=== PATIENT | female | born 1990 | race Caucasian/White ===

== ENCOUNTER 2016-09-04 08:45 | Emergency (ER) | payer MEDICAID, OTHER ==
[2016-09-04 09:19] VITALS: BP 104/62; PULSE 79; RESP 16; TEMP 98.4; O2SAT 96; BMI 24.3
--- NOTE | 2016-09-04 09:24 | ED PDOC ---
Arrival/HPI - General Chief Complaint: ENT Problem Time Seen by Provider: 09/04/16 09:12 Historian: Patient - History of Present Illness Time/Duration: Other (1 day) Symptom Onset: Gradual Symptom Course: Unchanged Activities at Onset: Rest Associated Symptoms (Text): 09/04/16 09:22 Patient complains since yesterday of sore throat with just not feeling well. No cough congestion or URI. No vomiting or diarrhea. No fever or chills. She does not appear ill. Past Medical History - Infectious Disease Hx of Infectious Diseases: None - Tetanus Immunization Tetanus Immunization: Unknown - Cardiac Hx Cardiac Disorders: No - Pulmonary Hx Respiratory Disorders: Yes Hx Asthma: Yes - Neurological Hx Neurological Disorder: No - HEENT Hx HEENT Disorder: No - Renal Hx Renal Disorder: No - Endocrine/Metabolic Hx Endocrine Disorders: No - Hematological/Oncological Hx Blood Disorders: No - Integumentary Hx Dermatological Disorder: No - Musculoskeletal/Rheumatological Hx Musculoskeletal Disorders: No - Gastrointestinal Hx Gastrointestinal Disorders: No - Genitourinary/Gynecological Hx Genitourinary Disorders: Yes Other/Comment: ovarian cyst - Psychiatric Hx Psychophysiologic Disorder: No Hx Substance Use: No - Surgical History Hx Eye Surgery: Yes Other/Comment: - Anesthesia Hx Anesthesia: Yes Hx Anesthesia Reactions: No Hx Malignant Hyperthermia: No - Suicidal Assessment Feels Threatened In Home Enviroment: No Family/Social History - Physician Review Nursing Documentation Reviewed: Yes Family/Social History: Unknown Family HX Smoking Status: Never Smoked Hx Alcohol Use: No Hx Substance Use: No Hx Substance Use Treatment: No Allergies/Home Meds Allergies/Adverse Reactions: Allergies No Known Allergies Allergy (Verified 03/29/15 16:34) Review of Systems - Physician Review All systems were reviewed & negative as marked: Yes - Review of Systems Constitutional: Fatigue. absent: Fevers ENT: Sore Throat. absent: Rhinorrhea, Sinus Congestion Respiratory: absent: Cough Physical Exam Vital Signs Temp Pulse Resp BP Pulse Ox 09/04/16 09:17 98.4 F 79 16 104/62 96 Temperature: Afebrile Blood Pressure: Normal Pulse: Regular Respiratory Rate: Normal Appearance: Positive for: Well-Appearing, Non-Toxic, Comfortable Pain Distress: None Mental Status: Positive for: Alert and Oriented X 3 - Systems Exam Head: Present: Atraumatic, Normocephalic Pupils: Present: PERRL Extroacular Muscles: Present: EOMI Conjunctiva: Present: Normal Ears: Present: NORMAL TM, Normal Canal. No: Erythema, TM Bulging Mouth: Present: Moist Mucous Membranes Pharnyx: Present: ERYTHEMA. No: EXUDATE, TONSILS ENLARGED, Peritonsilar Swelling, Uvular Deviation, Muffled/Hoarse Voice, Strider, Soft Palate/Uvular Edema Neck: Present: Normal Range of Motion Respiratory/Chest: Present: Clear to Auscultation, Good Air Exchange. No: Respiratory Distress, Accessory Muscle Use Cardiovascular: Present: Regular Rate and Rhythm, Normal S1, S2. No: Murmurs Skin: Present: Warm, Dry, Normal Color. No: Rashes Disposition/Present on Arrival - Present on Arrival Any Indicators Present on Arrival: No History of DVT/PE: No History of Uncontrolled Diabetes: No Urinary Catheter: No History of Decub. Ulcer: No History Surgical Site Infection Following: None - Disposition Have Diagnosis and Disposition been Completed?: Yes Diagnosis: Pharyngitis Disposition: HOME/ ROUTINE Disposition Time: 09:23 Patient Plan: Discharge Condition: GOOD Discharge Instructions (ExitCare): Pharyngitis (ED) Additional Instructions: Symptomatic treatment. Tylenol as directed on bottle as needed. Cepacol or Cepastat as directed on bottle as needed. Follow-up with PMD. Follow-up in the ER as needed. Prescriptions: Amoxicillin [Amoxil 250 mg Cap] 250 mg PO TID #21 cap Referrals: PCP,NO [Primary Care Provider] - Follow up with primary
== END 2016-09-04 09:47 | disposition home or self-care (01) ==
LOC: ED 08:45
DX: J02.9 Acute pharyngitis, unspecified (principal)

== ENCOUNTER 2017-03-26 09:13 | Emergency (ER) | payer MEDICAID ==
[2017-03-26 09:16] VITALS: BMI 22.4
[2017-03-26] MEDS ORDERED: Levalbuterol 1.25 MG/3 ML Inhal Soln UD IH STA (09:21)
--- NOTE | 2017-03-26 09:36 | ED PDOC ---
Arrival/HPI <Ron Mathews - Last Filed: 03/26/17 10:38> <[place] - Last Filed: 03/26/17 18:34> - General Chief Complaint: Shortness Of Breath Time Seen by Provider: 03/26/17 09:19 - History of Present Illness Narrative History of Present Illness (Text): CC: SOB x2d Patient is a 26 yo F w/ Hx of asthma who has never been intubated coming to the hospital for 2d history of SOB; states she ran out of her inhalers and SOB is getting worse. Walked into ER, able to speak in full sentences, not in any apparent respiratory distress. States mom used to be respiratory therapist and would give her treatments at home when the weather got worse, but patients mother last month and the patient has not had the same access to treatments. Is only on albuterol rescue inhaler and nebulizer tx PRN; no long acting inhalers. Patient has never been hospitalized for asthma, never been intubated in the past. Patient states she has been feeling under the weather with a cough for the past few days; non productive with diffuse body aches and shortness of breath. did not receive her flu shot. admits to fevers/chills, SOb at home, has taken fever reducers prior to coming into hospital. Denies CP, abdominal pain, N/V/D, dysuria/freq/urg, or lower extremity pain/swelling. (Ron Mathews) Past Medical History - Provider Review Nursing Documentation Reviewed: Yes - Travel History Have you recently traveled outside [place] w/in the past 3 mons?: No - Infectious Disease Hx of Infectious Diseases: None - Tetanus Immunization Tetanus Immunization: Unknown - Cardiac Hx Cardiac Disorders: No - Pulmonary Hx Respiratory Disorders: Yes Hx Asthma: Yes - Neurological Hx Neurological Disorder: No - HEENT Hx HEENT Disorder: No - Renal Hx Renal Disorder: No - Endocrine/Metabolic Hx Endocrine Disorders: No - Hematological/Oncological Hx Blood Disorders: No - Integumentary Hx Dermatological Disorder: No - Musculoskeletal/Rheumatological Hx Musculoskeletal Disorders: No - Gastrointestinal Hx Gastrointestinal Disorders: No - Genitourinary/Gynecological Hx Genitourinary Disorders: Yes Other/Comment: ovarian cyst - Psychiatric Hx Psychophysiologic Disorder: No Hx Substance Use: Yes - Surgical History Hx Eye Surgery: Yes Other/Comment: - Anesthesia Hx Anesthesia: Yes Hx Anesthesia Reactions: No Hx Malignant Hyperthermia: No - Suicidal Assessment Feels Threatened In Home Enviroment: No <Ron Mathews - Last Filed: 03/26/17 10:38> Family/Social History - Physician Review Nursing Documentation Reviewed: Yes Family/Social History: No Known Family HX Smoking Status: Never Smoked Hx Alcohol Use: No Hx Substance Use: Yes Substance used: marijuana Hx Substance Use Treatment: No <Ron Mathews - Last Filed: 03/26/17 10:38> Allergies/Home Meds <Ron Mathews - Last Filed: 03/26/17 10:38> <[place] - Last Filed: 03/26/17 18:34> Allergies/Adverse Reactions: Allergies No Known Allergies Allergy (Verified 03/29/15 16:34) Review of Systems - Review of Systems Constitutional: absent: Fatigue, Weight Change Eyes: absent: Vision Changes, Photophobia ENT: absent: Hearing Changes, Tinnitus Respiratory: SOB, Cough. absent: Sputum, Wheezing Cardiovascular: absent: Chest Pain, Palpitations, Edema Gastrointestinal: absent: Abdominal Pain, Stool Changes Genitourinary Female: absent: Dysuria, Frequency, Hematuria Musculoskeletal: Arthralgias. absent: Back Pain, Neck Pain, Joint Swelling Skin: absent: Rash, Pruritis, Skin Lesions Neurological: absent: Headache, Dizziness, Focal Weakness Endocrine: absent: Diaphoresis, Polyuria Hemo/Lymphatic: absent: Adenopathy, Easy Bleeding Psychiatric: absent: Anxiety, Depression <Ron Mathews - Last Filed: 03/26/17 10:38> Physical Exam Temperature: Afebrile Blood Pressure: Normal Pulse: Tachycardic Respiratory Rate: Normal Appearance: Positive for: Well-Appearing, Non-Toxic, Comfortable Mental Status: Positive for: Alert and Oriented X 3 - Systems Exam Head: Present: Atraumatic Pupils: Present: PERRL Extroacular Muscles: Present: EOMI Conjunctiva: Present: Normal Mouth: Present: Moist Mucous Membranes, Normal Teeth Pharnyx: No: ERYTHEMA, EXUDATE Neck: Present: Normal Range of Motion. No: Meningeal Signs Respiratory/Chest: Present: Good Air Exchange, Wheezes, Rales (in RLL). No: Clear to Auscultation, Respiratory Distress, Accessory Muscle Use, Decreased Breath Sounds Cardiovascular: Present: Normal S1, S2, Tachycardic. No: Murmurs Abdomen: Present: Normal Bowel Sounds. No: Tenderness, Distention Back: Present: Normal Inspection. No: CVA Tenderness Upper Extremity: Present: Normal Inspection. No: Cyanosis, Edema Lower Extremity: Present: Normal Inspection. No: Edema, CALF TENDERNESS Neurological: Present: GCS=15, CN II-XII Intact, Speech Normal Skin: Present: Warm <Ron Mathews - Last Filed: 03/26/17 10:38> Vital Signs Temp Pulse Resp BP Pulse Ox 03/26/17 10:55 99 H 16 121/87 100 03/26/17 09:29 16 03/26/17 09:17 98.1 F 114 H 16 119/67 100 Medical Decision Making <Ron Mathews - Last Filed: 03/26/17 10:38> <[place] - Last Filed: 03/26/17 18:34> ED Course and Treatment: Asthma vs PNA Will order chest X-Ray Breathing treatments as well as peak flow patient is speaking in full sentences in no acute distress, can lay flat, is coughing will order flu as well dispo and reassess 03/26/17 10:21 X-Ray shows no PNA will get breathing treatments will give burst of steroids, 5 days, 40mg Will give prescription for Flovent rescue inhaler patient is to follow up with her PMD the patient is stable for d/c as per Dr. [place] (Ron Mathews) Patient with uncomplicated wheezing and asthma patient is mildly tachycardic after her breathing treatments she is much improved patient will be discharged 03/26/17 18:34 ([place]) - Lab Interpretations Lab Results: Lab Results 03/26/17 10:10: Influenza Typ A,B (EIA) Negative for flu a/b - RAD Interpretation Radiology Orders: 03/26/17 09:24 CHEST PORTABLE [RAD] Stat - Medication Orders Current Medication Orders: Discontinued Medications Albuterol/Ipratropium (Duoneb 3 Mg/0.5 Mg (3 Ml) Ud) 3 ml IH Q15M PRN PRN Reason: SOb Stop: 03/26/17 10:01 Last Admin: 11/14/17 10:30 Dose: 3 ml Levalbuterol HCl (Xopenex) 1.25 mg IH STAT STA Stop: 03/26/17 09:22 Last Admin: 03/26/17 10:11 Dose: 1.25 mg - PA / [employer] / Resident Statement / has reviewed & agrees with the documentation as recorded. <[place] - Last Filed: 03/26/17 18:34> Disposition/Present on Arrival - Present on Arrival Any Indicators Present on Arrival: No History of DVT/PE: No History of Uncontrolled Diabetes: No Urinary Catheter: No History of Decub. Ulcer: No History Surgical Site Infection Following: None - Disposition Have Diagnosis and Disposition been Completed?: Yes Disposition Time: 10:39 Patient Plan: Discharge <Ron Mathews - Last Filed: 03/26/17 10:38> <[place] - Last Filed: 03/26/17 18:34> - Disposition Diagnosis: Asthma Disposition: HOME/ ROUTINE Condition: FAIR Discharge Instructions (ExitCare): Asthma (ED) Additional Instructions: Please f/u with your primary care provider within the week for more prescriptions for your asthma feel better Prescriptions: Albuterol Sulfate [Proair Hfa] 200 puff IH Q4H PRN #1 inh PRN Reason: SOb Benzonatate [Tessalon Perles] 100 mg PO BID PRN 7 Days #14 sgl PRN Reason: Cough predniSONE [Prednisone] 20 mg PO 5XD #5 tab Forms: [employer] (Lao)
[2017-03-26 09:37] VITALS: RESP 16; TEMP 98.1; O2SAT 100
[2017-03-26] MEDS: Albuterol-Ipratrop 3 mg / 0.5 (3 ml) UD IH PRN ×2 (10:11→10:30)
--- NOTE | 2017-03-26 10:15 | RAD ---
HISTORY: SOB/Cough COMPARISON: No prior. FINDINGS: LUNGS: No active pulmonary disease. PLEURA: No significant pleural effusion identified, no pneumothorax apparent. CARDIOVASCULAR: Normal. OSSEOUS STRUCTURES: No significant abnormalities. VISUALIZED UPPER ABDOMEN: Normal. OTHER FINDINGS: None. IMPRESSION: No active disease.
[2017-03-26 11:52] VITALS: BP 121/87; PULSE 99
== END 2017-03-26 10:55 | disposition home or self-care (01) ==
LOC: ED 09:13
DX: J45.909 Unspecified asthma, uncomplicated (principal)